=== PATIENT | male | born 1965 | race Caucasian/White ===

== ENCOUNTER 2020-04-30 10:01 | Emergency (ER) | payer OTHER, SELFPAY ==
--- NOTE | ~2020-04-30 | US_ITS ---
EXAMINATION: US venous doppler [facility] DATE: 04/30/2020 11:36 INDICATION: Left lower limb swelling TECHNIQUE: Grayscale ultrasound images without and with compression and Doppler ultrasound images of the left lower extremity veins were obtained. COMPARISON: None. FINDINGS: The visualized portions of left common femoral vein, profunda (deep) femoral vein, femoral vein, popl iteal vein, peroneal veins, posterior tibial veins, gastrocnemius vein and greater saphenous vein out flow are patent. IMPRESSION: 1. No deep venous thrombosis in the left lower limb. Reviewed, dictated and finalized at location B.
[2020-04-30 10:05] VITALS: BP 125/80; PULSE 96; RESP 16; TEMP 36.8; O2SAT 100
--- NOTE | 2020-04-30 12:07 | ED.GENADULT ---
HPI - General Adult General Chief complaint: Extremity Injury, Lower Stated complaint: injury lt leg/work injury Time Seen by Provider: 04/30/20 11:02 History of Present Illness HPI narrative: Patient is a 54-year-old male who presents ER with a wound to his left dodd. Reports 2 weeks ago he was at work when he scraped it. Reports there is a flap of skin that is no longer there. He has been treating it daily with a peroxide. He is also been trying to let it dry out. Reports no edema to the lower extremity since the injury. No chest pain or shortness of breath. No redness/warmth/tenderness, no fever. Related Data Home Medications Medication Instructions Recorded Confirmed No Home Medications 04/30/20 04/30/20 Allergies Allergy/AdvReac Type Severity Reaction Status Date / Time No Known Allergies Allergy Verified 04/30/20 10:10 Review of Systems Constitutional: Constitutional: Denies chills, Denies fever(s) and Denies weakness Cardiovascular: Cardiovascular: Denies chest pain and Denies radiating jaw, neck or arm pain Respiratory: Respiratory: Denies dyspnea Musculoskeletal: Comments: Lower extremity edema left leg Integumentary/Breasts: Skin/Breast: Denies erythema, Denies rash and Reports skin ulcer PMFSH Past Medical History Medical History (Updated 04/30/20 @ 12:14 by Elan Banda MD) Patient denies significant medical history Surgical History Surgical History (Updated 04/30/20 @ 12:10 by lEan Banda MD) History of orthopedic surgery Left lower extremity muscle excision due to gangrene from trauma. Family History Family History (Updated 02/01/16 @ 23:21 by DOCTOR UNKNOWN) Mother Patient's mother is in good health, Onset Age: 73 Family history of malignant neoplasm of urinary bladder, Onset Age: 62 Father Patient's father is in good health, Onset Age: 74 Sibling Family history of gastrointestinal disorder Social History Social History Smoking status: Never smoker Alcohol intake: current Gender identity (if verbalized by the patient): Male Exam Narrative: Exam Narrative: GENERAL: Well-appearing, well-nourished, and in no acute distress. HEAD: Normocephalic, atraumatic. EXTREMITIES: Normal range of motion. Pitting lower extremity edema below the left anterior dodd wound going into the foot. No edema right lower extremity. Chronic deformity of the left calf region from previous surgery. SKIN: Warm, dry, no rash. Healing ulceration 4 cm x 2 cm left anterior dodd and lower aspect. Nondraining. No surrounding cellulitis. NEURO: Alert and oriented x3. PSYCH: Normal mood and affect. Course Course Emergency Course: No DVT. Recommend routine wound care and follow-up with PCP. Discussed he should stop using peroxide. Vital Signs Vital signs: Vital Signs Temperature 98.3 F 04/30/20 10:05 Pulse Rate 96 04/30/20 10:05 Respiratory Rate 16 04/30/20 10:05 Blood Pressure 125/80 04/30/20 10:05 Pulse Oximetry 100 04/30/20 10:05 Temperature 98.3 F 04/30/20 10:05 Pulse Rate 96 04/30/20 10:05 Respiratory Rate 16 04/30/20 10:05 Blood Pressure 125/80 04/30/20 10:05 Pulse Oximetry 100 04/30/20 10:05 Medical Decision Making Vital Signs Vital Signs: Vital Signs Temperature 98.3 F 04/30/20 10:05 Pulse Rate 96 04/30/20 10:05 Respiratory Rate 16 04/30/20 10:05 Blood Pressure 125/80 04/30/20 10:05 Pulse Oximetry 100 04/30/20 10:05 Temperature 98.3 F 04/30/20 10:05 Pulse Rate 96 04/30/20 10:05 Respiratory Rate 16 04/30/20 10:05 Blood Pressure 125/80 04/30/20 10:05 Pulse Oximetry 100 04/30/20 10:05 Imaging Data Radiologist's impression: ITS Impressions Venous Doppler Study 04/30/20 11:39 IMPRESSION: 1. No deep venous thrombosis in the left lower limb. Discharge Plan Discharge Clinical Impression: Visit for wound check, Edema, peripheral Patient Dispositi
[2020-04-30 12:20] VITALS: BP 130/68; PULSE 78; RESP 18; O2SAT 99
== END 2020-04-30 12:22 | disposition home or self-care (01) ==
PROVIDERS: Emergency Provider Emergency Medicine; PCP Family Medicine
DX: S81.802A Unspecified open wound, left lower leg, initial encounter (principal); R60.9 Edema, unspecified; W22.8XXA Striking against or struck by other objects, initial encounter
CPT/HCPCS: 93971; 99284

== ENCOUNTER 2020-05-31 07:28 | Emergency (ER) | payer OTHER, SELFPAY ==
[2020-05-31 07:33] VITALS: BP 147/93; PULSE 103; RESP 16; TEMP 36.9; O2SAT 100
--- NOTE | 2020-05-31 09:22 | ED.LOWEXIN ---
HPI - Extremity Injury (Lower) General Chief Complaint: Extremity Injury, Lower Stated Complaint: leg infection Time Seen by Provider: 05/31/20 07:38 History of Present Illness HPI Narrative: Patient is a 54-year-old male who presents ER with infection to the right calf. Seen by provider previously who is prescribing clindamycin. Started this 3 days ago. No fevers or chills or sweats. The area continues to be firm and actively draining. Redness or lymphangitic streaking. Next originally started as a spider bite 1 week ago. Related Data Allergies Allergy/AdvReac Type Severity Reaction Status Date / Time No Known Allergies Allergy Verified 05/31/20 08:01 Review of Systems Constitutional: Constitutional: Denies chills, Denies fever(s) and Denies weakness Integumentary/Breasts: Comments: Draining right calf abscess with induration. No redness. No warmth. PMFSH Past Medical History Medical History Patient denies significant medical history Surgical History Surgical History History of orthopedic surgery Left lower extremity muscle excision due to gangrene from trauma. Family History Family History Mother Patient's mother is in good health, Onset Age: 73 Family history of malignant neoplasm of urinary bladder, Onset Age: 62 Father Patient's father is in good health, Onset Age: 74 Sibling Family history of gastrointestinal disorder Social History Social History Smoking status: Never smoker Second hand tobacco smoke exposure: No Alcohol intake: current Substance use: never Substance use type: does not use Gender identity (if verbalized by the patient): Male Exam Narrative: Exam Narrative: GENERAL: Well-appearing, well-nourished, and in no acute distress. HEAD: Normocephalic, atraumatic. EXTREMITIES: Normal range of motion. No edema. SKIN: Warm, dry. Area of induration to the right calf posterior lateral aspect about 4 cm x 3 cm without overlying cellulitis. Central area of purulent drainage. No lymphangitic streaking. Left dodd healing skin ulcer with granulation tissue no surrounding cellulitis. NEURO: Alert and oriented x3. PSYCH: Normal mood and affect. Course Course Emergency Course: Continue clindamycin. Abscess incised and drained. Loculations broken up and pus milked from the upper calf down and out of incision. Vital Signs Vital signs: Vital Signs Temperature 98.4 F 05/31/20 07:33 Pulse Rate 103 H 05/31/20 07:33 Respiratory Rate 16 05/31/20 07:33 Blood Pressure 147/93 H 05/31/20 07:33 Pulse Oximetry 100 05/31/20 07:33 Temperature 98.4 F 05/31/20 07:33 Pulse Rate 103 H 05/31/20 07:33 Respiratory Rate 16 05/31/20 07:33 Blood Pressure 147/93 H 05/31/20 07:33 Pulse Oximetry 100 05/31/20 07:33 Procedures Abscess I/D lower extremity: Date of Incision: 05/31/20 Time of Incision: 09:12 Side (if applicable): right Local Anesthetic: lidocaine 1% and with epi Amount of anesthesia used (mL): 4 Technique: incised with #11 blade and probed loculations Packing used?: plain I&D Results: Pus Discharge Plan Discharge Clinical Impression: Abscess Patient Disposition: Home, Self-Care Condition: Stable Instructions: Abscess (ED) Additional Instructions: Remove your packing in 2 days. Return to the ER if you have fever over 100.4 ?F, you cannot keep down food or water, you have chest pain or shortness of breath, you have additional concerns. Continue your clindamycin. Prescriptions: New hydrocodone-acetaminophen [Rhododendron] 5-325 mg tablet 1 tablet PO Q6H PRN (Reason: pain) Qty: 14 RF: 0 No Action clindamycin HCl 300 mg capsule 300 mg PO QID Qty: 40 RF: 0 Xarelto 2
== END 2020-05-31 09:45 | disposition home or self-care (01) ==
PROVIDERS: Emergency Provider Emergency Medicine; PCP Family Medicine
DX: L02.415 Cutaneous abscess of right lower limb (principal)
CPT/HCPCS: 10061; 99283

== ENCOUNTER 2020-08-23 07:27 | Outpatient (RCR) | payer OTHER, SELFPAY ==
[2020-06-11 12:38] VITALS: BMI 29.8
--- NOTE | 2020-07-16 21:17 | WPDWOUNDNOTE ---
Wound Care Note Date/Time: 07/16/20 21:17 No new complaints. Continuing to dress with silver gel and mepilex. Assessment and Plan Assessment and plan (1) Nonhealing ulcer of left lower leg: Qualifiers: Non-pressure ulcer stage: with fat layer exposed Qualified Code(s): L97.922 - Non-pressure chronic ulcer of unspecified part of left lower leg with fat layer exposed Code(s): L97.929 - Non-pressure chronic ulcer of unspecified part of left lower leg with unspecified severity Status: Chronic Assessment and Plan: Left lower leg ulcer clearly healing. Much smaller. Very superficial. Cont present wound care. Recheck in 2 weeks in wound clinic. 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 Review of Systems Constitutional: Constitutional: Denies chills and Denies fever(s) Integumentary/Breasts: Skin/Breast: Reports swelling, Reports dry skin and Reports pruritus Exam Skin: Wounds: wounds noted (left leg wound pink and healing. 3.4cm x 1.1 cm. Clearly smaller.) Extrem: Left lower extremity: edema and lower leg (excoriation associated with tape on either side of wound)
--- NOTE | 2020-07-30 13:50 | P.PNWOUND_ITS ---
Wound Care Note Date/Time: 07/30/20 13:50 No new complaints or problems. 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 Continue silver gel and gauze dressing. Recheck in 3 weeks. Expect it will be healed by then. 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 Review of Systems Constitutional: Constitutional: Denies body ache(s), Denies chills, Denies fever(s) and Denies lethargy Integumentary/Breasts: Skin/Breast: Reports as per HPI, Reports non-healing lesions ( Left leg, see HPI) and Denies erythema Exam Extrem: Left lower extremity: lower leg ( ulcer very superficial now. Bioburden gently removed. 2.5 x 0.9 x 0.1 cm) Details: other ( Ulcer almost co mpletely epithelialized. Nearly healed. Very superficial.); no erythema, no tenderness and no unusual warmth
--- NOTE | 2020-08-20 11:23 | PCWOUND ---
WOCN NOTE cancelled appointment for today per Dr Thapa Request due to weather. rescheduled.
--- NOTE | 2020-08-23 10:43 | P.PNWOUND_ITS ---
Wound Care Note Date/Time: 08/23/20 10:43 Patient has a new complaint. He thinks he got bit by an in sac possibly a spider in the right posterior flank. It was very red and swollen. 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 Also has pruritus. Left lower leg ulcer seems to be healing. 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 Continue silver gel and gauze dressing daily. Recheck in 3 weeks (2) Spider bite wound: Code(s): T63.301A - Toxic effect of unspecified spider venom, accidental (unintentional), initial encounter Status: Acute Assessment and Plan: Does not appear to be infected. Recommend Silver Gel and bandage daily. Do not feel there is a need for antibiotics. Review of Systems Constitutional: Constitutional: Reports as per HPI, Denies chills, Denies fatigue, Denies fever(s) and Denies weakness Exam GI: Inspection: other (Scabbed erythematous lesion at belt line right posterior flank, no drainage) GI Palp: Yes Soft to palpation and No Tenderness to palpation present (GI) Extrem: Left lower extremity: lower leg (Ulcer is a couple mm shorter in length but very superficial. Nearly healed)
== END 2020-09-09 23:59 | disposition home or self-care (01) ==
LOC: ANHWOC 07:27
PROVIDERS: PCP Family Medicine; Visit Provider Surgery
DX: L03.119 Cellulitis of unspecified part of limb (principal); L97.929 Non-pressure chronic ulcer of unspecified part of left lower leg with unspecified severity; S81.801D Unspecified open wound, right lower leg, subsequent encounter; Z94.5 Skin transplant status
CPT/HCPCS: 99212; G0463

== ENCOUNTER 2020-10-02 07:47 | Outpatient (RCR) | payer OTHER, SELFPAY ==
[2020-09-10 00:03] VITALS: BMI 29.8
--- NOTE | 2020-09-13 11:46 | WPDWOUNDNOTE ---
Wound Care Note Date/Time: 09/13/20 11:46 History: Left lower extremity wound in area of skin graft continues to heal. Patient has developed a new wound in the anterior left thigh. Wound history: Very slowly healing due to area of previous skin graft. Using silver gel. Left anterior thigh is a new wound which he has tried to squeeze out a purulent core without success Wound approximation: No Wound width: 4 mm Anterior thigh is very superficial, 3 mm, entire area raised consistent with insect bite Wound length: 1.2 cm Wound depth: 1 mm Drainage: Almost none Surrounding tissue appearance: Some excoriation consistent with yeast on the surrounding skin Thigh wound raised and erythematous consistent with insect bite. No fluctuance. No necrotic skin Tunneling: None Percentage granulation tissue: 100 Treatment/Procedures: Thin film of bioburden removed as usual. No treatment to thigh wound. Dressings: Lotrisone cream to surrounding skin. Continue silver gel to wound daily. Left thigh wound should be washed with soap daily. Apply Pred cream twice a day and fresh dressing. Do not squeeze this wound. Assessment and Plan Assessment and plan (1) Spider bite wound: Qualifiers: Encounter type: initial encounter Injury intent: accidental or unintentional Qualified Code(s): T63.301A - Toxic effect of unspecified spider venom, accidental (unintentional), initial encounter Code(s): T63.301A - Toxic effect of unspecified spider venom, accidental (unintentional), initial encounter Status: Acute Assessment and Plan: Wash with soap and water daily, Prid cream at least once, if not twice, a day. Do not squeeze this wound anymore. 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 Nearly healed. Recheck in 3 weeks. 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 Review of Systems Review of Systems: All systems reviewed & are unremarkable except as noted in HPI and below (HPI and below) Integumentary/Breasts: Skin/Breast: Reports lesions (New left anterior thigh wound) Exam Extrem: Left lower extremity: hip/thigh (Insect bite with 3 mm eschar, no fluctuance or crepitus) Details: swelling; no crepitus and no unusual warmth and lower leg (Thin biofilm, very superficial wound. Nearly healed.)
== END 2020-12-04 14:09 | disposition home or self-care (01) ==
LOC: ANHWOC 07:47
PROVIDERS: PCP Family Medicine; Visit Provider Surgery
DX: L03.119 Cellulitis of unspecified part of limb (principal); L97.929 Non-pressure chronic ulcer of unspecified part of left lower leg with unspecified severity; S81.801D Unspecified open wound, right lower leg, subsequent encounter; Z94.5 Skin transplant status
CPT/HCPCS: 99212; A9270; G0463

== ENCOUNTER 2021-07-12 08:15 | Outpatient (CLI) | payer OTHER, SELFPAY ==
--- NOTE | ~2021-07-12 | XR_ITS ---
EXAMINATION: XR hand LT min 3V DATE: 07/12/2021 08:57 INDICATION: Contusion with bruising at the nailbed of the left index finger TECHNIQUE: Posteroanterior, oblique and lateral views of the left hand were obtained. COMPARISON: None. FINDINGS: Subtle linear lucency extending across the base of the left second distal phalanx consistent with non displaced fracture with subacute appearance. No evident periosteal reaction. No other fractures ident ified. Mild osteoarthritis at the second and third distal interphalangeal joints with radial side pre dominant nonuniform joint space narrowing resulting in mild radial angulation of both joints. Additio nal mild osteoarthritis at the triscaphe, first carpometacarpal and several additional metacarpophala ngeal and interphalangeal joints. Small marginal osteophytes along the widened distal radioulnar join t. Lucency with thin sclerotic margins along the distal articular surface of the ulna which could rep resent a chronic erosion or degenerative subarticular cystic change. IMPRESSION: 1. Nondisplaced subacute extra articular fracture across the base of the left second distal phalanx. 2. Age indeterminate widening of the distal radioulnar joint which could be seen in the setting of a tear of the triangular fibrocartilage complex. 3. 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 Reviewed, dictated and finalized at location B. [employer] IMPRESSION: 1. Nondisplaced subacute extra articular fracture across the base of the left s econd distal phalanx. 2. Age indeterminate widening of the distal radioulnar joint which could be see n in the setting of a tear of the triangular fibrocartilage complex. 3. Mild polyarticular osteoarthritis greatest at the second and third distal in terphalangeal joints.
[2021-07-12 09:07] LABS: Basophils Absolute Auto 0.1 K/mm3 (0.0-0.1); Basophils Percent Auto 0.7 % (0.2-1.2); Eosinophils Absolute Auto 0.2 K/mm3 (0-0.3); Eosinophils Percent Auto 2.7 % (0-4.4); Hematocrit 41.5 % (42.0-52.0); Immature Granulocyte Absolute 0.03 K/mm3 (0.00-0.031); Immature Granulocyte Percent A 0.4 % (0-0.5); Lymphocytes Absolute Auto 1.69 K/mm3 (0.9-3.2); Lymphocytes Percent Auto 24.9 % (18.3-44.2); Mean Corpuscular HGB Conc 33.7 g/dl (32-36); Mean Corpuscular Hemoglobin 34.1 pg (26-34); Mean Corpuscular Volume 101.2 fl (80-100); Mean Platelet Volume 10.4 fl (7.4-10.4); Monocytes Absolute Auto 0.6 K/mm3 (0.1-0.6); Neutrophils Absolute Auto 4.2 K/mm3 (1.3-6.7); Neutrophils Percent Auto 62.3 % (45.5-73.1); Platelet Count Result 178 k/mm3 (150-375); Red Cell Distribution Width 12.9 % (11.5-14.5); White Blood Count 6.8 K/mm3 (4.5-10.0)
[2021-07-12 09:24] LABS: Alanine Aminotransferase 26 U/L (4-50); Albumin Level 4.7 g/dL (3.5-5.1); Alkaline Phosphatase 45 U/L (38-126); Anion Gap 8 mmol/L (8-16); Aspartate Amino Transferase 31 U/L (17-59); Bilirubin,Total 2.2 mg/dL (0.2-1.3); Blood Urea Nitrogen 18 mg/dL (9-20); Calcium 9.3 mg/dL (8.4-10.2); Carbon Dioxide 30 mmol/L (22-30); Chloride 97 mmol/L (98-107); Cholesterol 177 mg/dL (0-200); Estimated Glomerular Filt Rate > 60; Glucose 98 mg/dL (65-110); HDL Direct 74 mg/dL; Potassium 4.2 mmol/L (3.4-5.0); Sodium 135 mmol/L (137-145); Triglycerides 39 mg/dL (<150); Uric Acid 5.5 mg/dL (3.5-8.5)
[2021-07-12 09:34] LABS: LDL Cholesterol Direct 91 mg/dL
== END 2021-07-12 08:16 | disposition home or self-care (01) ==
PROVIDERS: PCP Family Medicine; Visit Provider Family Medicine
DX: M19.042 Primary osteoarthritis, left hand (principal); Z00.00 Encounter for general adult medical examination without abnormal findings; Z83.49 Family history of other endocrine, nutritional and metabolic diseases; M79.642 Pain in left hand; S60.00XA Contusion of unspecified finger without damage to nail, initial encounter; M18.12 Unilateral primary osteoarthritis of first carpometacarpal joint, left hand
CPT/HCPCS: 36415; 73130; 80053; 80061; 84443; 84550; 85025

== ENCOUNTER 2021-11-01 08:04 | Emergency (ER) | payer OTHER, SELFPAY ==
[2021-11-01 08:11] VITALS: BP 128/65; PULSE 72; RESP 18; TEMP 36.6; O2SAT 100
--- NOTE | 2021-11-01 09:12 | PC.NURSE ---
patient report given to ALEX Rodriguez. All questions answered and care of patient transferred.
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
[2021-11-01 10:33] VITALS: PULSE 75; RESP 18; O2SAT 98
== END 2021-11-01 10:36 | disposition home or self-care (01) ==
PROVIDERS: Emergency Provider Emergency Medicine; PCP Family Medicine
DX: L02.11 Cutaneous abscess of neck (principal)
CPT/HCPCS: 10061; 99283

== ENCOUNTER 2022-10-16 11:07 | Emergency (ER) | payer OTHER, SELFPAY ==
--- NOTE | ~2022-10-16 | CT_ITS ---
EXAMINATION: CT UE RT w con DATE: 10/16/2022 14:44 INDICATION: Right upper limb swelling. TECHNIQUE: Computed tomography (CT) of the right upper limb was performed with 100 mL Omnipaque 350 i ntravenous contrast. Automated exposure control and iterative reconstruction technique were employed. The dose-length product was 824.27 mGy-cm. COMPARISON: Right hand radiographs 10/16/2022 FINDINGS: Bone alignment is normal. No fracture. 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 There is moderate osteoarthritis of distal ra dioulnar joint. 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 There is heterogeneous edema of the arm a nd hand. Dorsal to second metacarpal, there is a 2.0 x 0.8 x 1.0 cm rim-enhancing mass, consistent wi th abscess. There is hypodensity in the dorsal musculature between the first and second metacarpals, consistent with myositis. IMPRESSION: 1. 2.0 x 0.8 x 1.0 cm rim-enhancing mass dorsal to 2nd metacarpal, consistent with an abscess. Reviewed, dictated and finalized at location A.
--- NOTE | ~2022-10-16 | XR_ITS ---
XR hand RT min 3V 10/16/2022 13:12 INDICATION: Right hand pain and swelling PROCEDURE: 3 views right hand COMPARISON: 3 views right hand FINDINGS: Fracture, dislocation or subluxation is not identified. The soft tissues appear within norm al limits. No foreign bodies are identified. IMPRESSION: 1: NO ACUTE BONE OR JOINT ABNORMALITY IDENTIFIED. Reviewed, dictated and finalized at location L.
[2022-10-16 11:10] VITALS: BP 112/67; PULSE 76; RESP 18; TEMP 36.4; O2SAT 100
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
[2022-10-16 13:02] LABS: Basophils Absolute Auto 0.1 K/mm3 (0.0-0.1); Basophils Percent Auto 0.5 % (0.2-1.2); Eosinophils Absolute Auto 0.1 K/mm3 (0-0.3); Eosinophils Percent Auto 0.7 % (0-4.4); Hematocrit 42.7 % (42.0-52.0); Hemoglobin 13.9 g/dL (14.0-18.0); Immature Granulocyte Absolute 0.09 K/mm3 (0.00-0.031); Immature Granulocyte Percent A 0.6 % (0-0.5); Lymphocytes Absolute Auto 1.68 K/mm3 (0.9-3.2); Lymphocytes Percent Auto 11.8 % (18.3-44.2); Mean Corpuscular HGB Conc 32.6 g/dl (32-36); Mean Corpuscular Hemoglobin 33.9 pg (26-34); Mean Corpuscular Volume 104.1 fl (80-100); Mean Platelet Volume 10.1 fl (7.4-10.4); Monocytes Absolute Auto 1.6 K/mm3 (0.1-0.6); Monocytes Percent Auto 11.5 % (2.6-8.5); Neutrophils Absolute Auto 10.7 K/mm3 (1.3-6.7); Neutrophils Percent Auto 74.9 % (45.5-73.1); Platelet Count Result 200 k/mm3 (150-375); Red Cell Distribution Width 13.4 % (11.5-14.5); White Blood Count 14.2 K/mm3 (4.5-10.0)
[2022-10-16 13:11] LABS: Lactic Acid Reflex 0.7 mmol/L (0.7-2.0)
[2022-10-16 13:13] LABS: Alanine Aminotransferase 23 U/L (6-50); Albumin Level 4.9 g/dL (3.5-5.1); Alkaline Phosphatase 56 U/L (38-126); Anion Gap 6 mmol/L (8-16); Aspartate Amino Transferase 27 U/L (17-59); Bilirubin,Total 4.3 mg/dL (0.2-1.3); Blood Urea Nitrogen 12 mg/dL (9-20); CRP 4.9 mg/dL (<1.0); Calcium 9.2 mg/dL (8.4-10.2); Carbon Dioxide 32 mmol/L (22-30); Chloride 99 mmol/L (98-107); Estimated CRCL calculation 93 ml/min; Estimated Glomerular Filt Rate > 60; Glucose 95 mg/dL (65-110); Potassium 4.2 mmol/L (3.4-5.0); Sodium 137 mmol/L (137-145)
[2022-10-16] MEDS: TETANUS,DIPHTHERIA,AC PERTUSSIS ADULT (0.5 ML) BOOSTRIX IM (13:32)
[2022-10-16] MEDS: SODIUM CHLORIDE 0.9% IV 1,000 ML 999 ML IV CONT (13:32)
[2022-10-16 13:36] LABS: Erythrocyte Sedimentation Rate 14 mm/hr (0-20)
[2022-10-16 13:37] VITALS: BP 117/81; PULSE 82; RESP 18; O2SAT 100
[2022-10-16 15:45] VITALS: BP 122/83; PULSE 80; RESP 18; O2SAT 100
--- NOTE | 2022-10-16 16:31 | PC.NURSE ---
[facility] accepted transfer to [facility] [place] [address] Trip # [id number]
== END 2022-10-16 17:27 | disposition short-term general hospital (02) ==
PROVIDERS: Emergency Provider Physician Assistant; PCP Family Medicine
DX: L03.113 Cellulitis of right upper limb (principal); Z23 Encounter for immunization
CPT/HCPCS: 36415; 73130; 73201; 80053; 83605; 85025; 85652; 86140; 87040; 90471; 90715; 96365; 96366; 99285; J3370; J7030; Q9967